=== PATIENT | female | born 1995 | race Two or more races ===

== ENCOUNTER 2017-01-14 21:48 | Emergency (ER) | payer MEDICAID ==
[2017-01-14 22:03] VITALS: BP 118/88; PULSE 71; RESP 14; TEMP 98.4; O2SAT 96
[2017-01-14] MEDS ORDERED: LIDOCAINE 2% VISCOUS 15 ML UDCUP PO ONE (22:28)
--- NOTE | 2017-01-14 22:32 | EDPHY ---
H & P Time Seen by Provider: 01/14/17 21:54 HPI/ROS: 21-year-old female presents complaining of sore throat, bilateral ear pain for approximately 4 days. She is able to swallow however it is painful. No fevers no chills She has 3 children, 2 currently have cold symptoms. Review of systems As per HPI General no fever no chills no weakness HEENT no eye pain no eye discharge. No eye redness, positive sore throat Respiratory no cough, no shortness of breath Cardiac no chest pain, no peripheral edema GI no abdominal pain, no diarrhea, no constipation, no nausea, no vomiting no flank pain, no hematuria, no dysuria Musculoskeletal no myalgias, no joint pain Heme no easy bruising, no easy bleeding Endo no polyuria, no polydipsia Skin no rashes, no pruritus Neuro no syncope, no dizziness, no headaches Psych is no suicidal ideation, no homicidal ideation Past Medical/Surgical History: Noncontributory Social History: Denies alcohol or drug use Smoking Status: Never smoked Physical Exam: Alert a 21-year-old female Alert and oriented in no acute distress nontoxic appearance, afebrile Atraumatic normocephalic Extraocular muscles intact, anicteric TMs clear bilaterally Neck-supple, positive anterior cervical lymphadenopathy mildly tender to palpation Oropharynx minimally enlarged tonsils, erythematous, no uvular deviation, no purulent exudate, tolerating own secretions, no trismus Aphthous ulcer on left tonsillar pillar Lungs clear to auscultation bilaterally Heart regular rate and rhythm Abdomen normoactive bowel sounds soft nontender Extremities no cyanosis clubbing edema Skin no rash Constitutional: Initial Vital Signs Temperature (C) 36.9 C 01/14/17 22:01 Heart Rate 71 01/14/17 22:01 Respiratory Rate 14 01/14/17 22:01 Blood Pressure 118/88 H 01/14/17 22:01 O2 Sat (%) 96 01/14/17 22:01 O2 Delivery Mode Room Air Allergies/Adverse Reactions: Penicillins Allergy (Intermediate, Verified 01/14/17 22:00) Rash Home Medications: Medication Instructions Recorded Lidocaine 2% Viscous 5 ml PO Q4 PRN #100 ml 01/14/17 Medical Decision Making ED Course/Re-evaluation: Medical decision making and ER course Patient seen and evaluated for sore throat, cold symptoms and bilateral ear pain Physical exam significant for mild erythema to throat as well as aphthous ulcer on left tonsil Differential diagnosis considered Viral pharyngitis, strep pharyngitis, URI, otitis media, viral syndrome Impression Likely viral pharyngitis Rapid strep negative Strep culture pending Plan Lidocaine 2% viscous, 5 mL swish and spit every 4-6 hours as needed for severe pain May take acetaminophen or ibuprofen as needed for pain Return if worsening Follow up with primary care physician - Data Points Laboratory Results: 01/14/17 01/14/17 Unknown 21:55 Group A Strep Screen NEGATIVE (NEGATIVE) Group A Strep DNA Pending Medications Given: Discontinued Medications Lidocaine (Lidocaine 2% Viscous) 5 ml PO EDNOW ONE Stop: 01/14/17 22:29 Last Admin: 01/14/17 22:34 Dose: 5 ml Departure - Departure Disposition: Home, Routine, Self-Care Clinical Impression: Acute pharyngitis Condition: Good Instructions: Pharyngitis (ED) Referrals: YENNI LYONS,Mary [Primary Care Provider] - As per Instructions Prescriptions: Lidocaine 2% Viscous 5 ml PO Q4 PRN #100 ml PRN Reason: Pain, Severe
== END 2017-01-14 22:41 | disposition home or self-care (01) ==
LOC: CED 21:48
DX: J02.9 Acute pharyngitis, unspecified (principal)
CPT/HCPCS: 87880-PO